=== PATIENT | male | born 1985 | race Caucasian/White ===

== ENCOUNTER → 2016-06-02 | Outpatient (CLI) | payer OTHER ==
--- NOTE | 2016-06-02 18:37 | DX ---
Lumbar spine, 2 views. HISTORY: Follow-up L1 compression fracture. Comparison examination: April 18, 2016. FINDINGS: Moderate wedge-shaped compression fracture of the superior endplate of the L1 vertebral bod y is again noted. There is focal kyphosis at the T12-L1 transition, measuring 23 degrees. Mild features of degenerative disc disease at L4-L5, stable. IMPRESSION: 1. Moderate compression fracture of the superior end plate of L1, with focal kyphosis at the thoracol umbar junction. 2. Mild degenerative disease at L4-L5.
== END ==
LOC: FIMAGING 13:22
PROVIDERS: ATTEND Neurological Surgery
DX: S32.000G Wedge compression fracture of unspecified lumbar vertebra, subsequent encounter for fracture with delayed healing (principal); M51.36 Other intervertebral disc degeneration, lumbar region

== ENCOUNTER → 2016-07-04 | Outpatient (CLI) | payer OTHER | LOC: FIMAGING 10:44 | PROVIDERS: ATTEND Orthopaedic Surgery Orthopaedic Surgery of the Spine | DX: S32.010D Wedge compression fracture of first lumbar vertebra, subsequent encounter for fracture with routine healing (principal) ==

== ENCOUNTER → 2018-01-24 | Outpatient (CLI) | payer OTHER | LOC: FIMAGING 14:27 | PROVIDERS: ATTEND Physician Assistant | DX: S32.010D Wedge compression fracture of first lumbar vertebra, subsequent encounter for fracture with routine healing (principal) ==